=== PATIENT | male | born 1965 | race Caucasian/White ===

== ENCOUNTER 2017-09-18 07:33 | Day surgery (SDC) | payer BC ==
[~2017-09-18] VITALS: Ht 188 cm; Wt 104.3 kg
[~2017-09-18 07:33] MED LIST: AMBIEN CR6.25 MG PO
[2017-09-18 07:53] VITALS: BP 119/74
[2017-09-18] MEDS ORDERED: PERCOCET 5/31 TABLET PO (11:42)
[2017-09-18] MEDS ORDERED: COLACE100 MG PO (11:42)
[2017-09-18 13:20] VITALS: BP 141/75
[2017-09-18 14:18] VITALS: BP 131/92
== END 2017-09-18 14:35 | disposition home or self-care (01) ==
LOC: SDC 07:33
PROC: 0FT44ZZ Resection of Gallbladder, Percutaneous Endoscopic Approach (ICD-10-PCS; principal; 2017-09-18)
DX: K80.10 Calculus of gallbladder with chronic cholecystitis without obstruction (principal); K66.0 Peritoneal adhesions (postprocedural) (postinfection); K21.9 Gastro-esophageal reflux disease without esophagitis; E66.9 Obesity, unspecified; Z68.29 Body mass index [BMI] 29.0-29.9, adult; F17.200 Nicotine dependence, unspecified, uncomplicated
CPT/HCPCS: 88304; C1769; J0131; J1170; J1885; J2250; J2405; J2710; J3010

== ENCOUNTER 2017-09-18 19:51 | Emergency (ER) | payer BC ==
[~2017-09-18] VITALS: Ht 188 cm; Wt 105.6 kg
[~2017-09-18 19:51] MED LIST changes: +COLACE100 MG PO; +PERCOCET 5/31 TABLET PO
[2017-09-18 20:44] LABS: ADD MIUA? NO; BILIRUBIN NEGATIVE; BLOOD NEGATIVE; COLOR YELLOW ((YELLOW)); GLUCOSE (STRIP) NEGATIVE; KETONES NEGATIVE; LEUKOCYTES NEGATIVE; NITRITE NEGATIVE; PROTEIN (STRIP) NEGATIVE; UCUL ADDED? NO; UROBILINOGEN 0.2 MG/DL (0.2-1.0)
[2017-09-18 21:08] VITALS: BP 123/74
== END 2017-09-18 21:11 | disposition home or self-care (01) ==
LOC: EME 19:51 → EXP 19:51
PROVIDERS: Physician Assistant
DX: R33.9 Retention of urine, unspecified (principal); Z98.890 Other specified postprocedural states; K21.9 Gastro-esophageal reflux disease without esophagitis; Z87.442 Personal history of urinary calculi; F17.200 Nicotine dependence, unspecified, uncomplicated
CPT/HCPCS: 81003; 99281; 99284